=== PATIENT | female | born 1975 | race Caucasian/White ===

== ENCOUNTER 2017-09-26 10:59 | Emergency (ER) | payer MEDICAID ==
[2017-09-26] MEDS: HYDROCODONE/APAP (5/325) TAB PO (12:44)
== END 2017-09-26 14:06 | disposition home or self-care (01) ==
LOC: FTE 10:59
DX: S00.83XA Contusion of other part of head, initial encounter (principal); S59.911A Unspecified injury of right forearm, initial encounter; I10 Essential (primary) hypertension; W10.8XXA Fall (on) (from) other stairs and steps, initial encounter; Y92.9 Unspecified place or not applicable
CPT/HCPCS: 73030; 73030-RT; 73060-RT; 99283-25